=== PATIENT | female | born 1985 | race Caucasian/White ===

== ENCOUNTER 2024-07-23 01:47 | Day surgery (SDC) | payer BC, SELFPAY ==
[2024-07-12 08:38] VITALS: BMI 27.1
[2024-07-23 12:12] VITALS: BP 130/93; PULSE 58; RESP 18; TEMP 36.1; O2SAT 99; BMI 26.4
[2024-07-23] MEDS: LACTATED RINGERS 1,000 ML 150 ML IV CONT (12:16)
--- NOTE | 2024-07-23 12:22 | WPDANESEPPF ---
Anes - Initial Pre Proc Eval Procedure: Operation Date: 07/23/24 13:00 Proposed Procedures p Colonoscopy - Davy Eden MD Date/Time: 07/23/24 12:22 Surgeon: Davy Eden MD Pre Op Diagnosis: Mixed IBS Patient Data Age: 39 Gender: F Height: 1.75 m Weight: 81.3 kg Last Vital Signs Temp 36.1 C L 07/23/24 12:12 Pulse 58 L 07/23/24 12:12 Resp 18 07/23/24 12:12 BP 130/93 H 07/23/24 12:12 Pulse Ox 99 07/23/24 12:12 O2 Del Method Room Air 07/23/24 12:12 Allergies Allergy/AdvReac Type Severity Reaction Status Date / Time No Known Allergies Allergy Verified 07/23/24 12:10 Home Medications Medication Instructions Recorded Confirmed Type sertraline 100 mg tablet 100 mg PO HS 07/12/24 07/23/24 History Patient hx anesthesia problems: none Family hx anesthesia problems: none Results Review: All pre-operative results and documents have been reviewed as part of the pre-operative evaluation. [facility] Past Medical History Medical History (Updated 07/23/24 @ 12:23 by Onur Singleton MD) Anxiety Overweight Social History Social History (Updated 07/17/24 @ 09:20 by Olya Frank) Social History: Caffeine-daily Smoking status: Never smoker Alcohol intake: current Alcohol use details: Social Substance use: current Substance use type: marijuana Other substance usage details: Gummies for sleep Last use: 07/06/24 Anes - Eval Final PreProcedure Day of Procedure 07/23/24 12:22 Patient weight: overweight Heart: regular rate and rhythm Lungs: clear to auscultation Airway: Mallampati scale class II Neurological: alert and oriented Last oral intake: >/= 8 hours ASA classification: II Emergent: no Anesthetic plan: proceed Anesthesia type and monitoring: general GIVS and standard monitoring Results Review: All pre-operative results and documents have been reviewed as part of the pre-operative evaluation. Informed Consent: The patient's anesthetic plan and its attendant risks and benefits were discussed with the patient/family/POA. Questions were solicited and answers provided to the satisfaction of the patient/family/POA.
--- NOTE | 2024-07-23 12:58 | PM.HPGS ---
History of Present Illness History of Present Illness Consent: Risks, benefits, and alternatives have been discussed and questions answered. Patient agrees to proceed with procedure. Chief complaint: Mixed IBS Narrative: Jen Anderson is a 39 year old female here for first colonoscopy, 6 months of change bowel habits, no weight loss Review of Systems Review of Systems: All systems reviewed & are unremarkable except as noted in HPI and below PMFSH Past Medical History Medical History (Updated 07/23/24 @ 12:58 by Davy Eden MD) Anxiety Bowel habit changes Overweight Social History Social History (Updated 07/17/24 @ 09:20 by Olya Frank) Social History: Caffeine-daily Smoking status: Never smoker Alcohol intake: current Alcohol use details: Social Substance use: current Substance use type: marijuana Other substance usage details: Gummies for sleep Last use: 07/06/24 Meds Home Medications and Allergies Home Medications Medication Instructions Recorded Confirmed Type sertraline 100 mg tablet 100 mg PO HS 07/12/24 07/23/24 History Allergies Allergy/AdvReac Type Severity Reaction Status Date / Time No Known Allergies Allergy Verified 07/23/24 12:10 Vital Signs Vital Signs - 24 hr 07/23/24 12:12 Temperature 96.9 F L Pulse Rate 58 L Respiratory Rate 18 Blood Pressure 130/93 H Pulse Oximetry 99 Oxygen Delivery Room Air Exam Const: General: comfortable and no acute distress HENMT: Face/Nose/Sinus: Normal nares present Eyes: General: appearance normal, both eyes and all related structures Neck: Neck: no JVD Resp: Auscultation: clear to auscultation bilaterally Cardio: Rate: regular rate Rhythm: regular rhythm GI: Inspection: non-distended GI Palp: Yes Soft to palpation Skin: General skin exam: normal color Neuro: General: gait normal Speech: normal speech Extrem: General: normal to inspection Psych: Mental Status: mental status grossly normal Assessment and Plan Assessment and plan (1) Bowel habit changes: Code(s): R19.4 - Change in bowel habit Status: Acute Assessment and Plan: colonoscopy
[2024-07-23 13:15] LABS: BEDSIDEPREGUCG Negative (Negative)
[2024-07-23 13:17] VITALS: BP 114/69; PULSE 69; RESP 23; O2SAT 99
[2024-07-23 13:27] VITALS: BP 109/72; PULSE 63; RESP 17; O2SAT 100
[2024-07-23 13:37] VITALS: BP 127/81; PULSE 55; RESP 19; O2SAT 100
== END 2024-07-23 13:42 | disposition home or self-care (01) ==
PROVIDERS: PCP Emergency Medicine; Referring Provider Emergency Medicine; Visit Provider Internal Medicine Gastroenterology
PROC: 0DJD8ZZ Inspection of Lower Intestinal Tract, Via Natural or Artificial Opening Endoscopic (ICD-10-PCS; CPT 45378; principal; 2024-07-23 13:00)
DX: K64.8 Other hemorrhoids (principal); F41.9 Anxiety disorder, unspecified; F12.90 Cannabis use, unspecified, uncomplicated
CPT/HCPCS: 45378; J2704; J7120

== ENCOUNTER 2024-09-18 08:29 | Outpatient (CLI) | payer BC, MEDICAID, SELFPAY ==
--- NOTE | 2024-09-18 11:30 | NEURO_ITS ---
Impression: # Complains of right elbow pain with numbness in right hand. ? # Normal Nerve Conduction Study; No Carpal Tunnel Syndrome or ulnar neuropathy. ? # Normal needle/EMG exam distally and proximally. ? # Clinical correlation recommended. Nerve Conduction Studies Anti Sensory Summary Table ?Stim Site NR Peak (ms) P-T Amp (?V) Site1 Site2 Delta-P (ms) Dist (cm) Eliazar (m/s) Right Median Anti Sensory (2-3nd Digit) Wrist ? 3.0 67.5 Wrist 2-3nd Digit 3.0 14.0 47 Wrist ? 3.0 40.9 Wrist 2-3nd Digit 3.0 14.0 47 Right Radial Anti Sensory (Base 1st Digit) Wrist ? 2.1 17.0 Wrist Base 1st Digit 2.1 0.0 Right Ulnar Anti Sensory (5th Digit) Wrist ? 2.3 54.4 Wrist 5th Digit 2.3 14.0 61 Motor Summary Table ?Stim Site NR Onset (ms) O-P Amp (mV) Site1 Site2 Delta-0 (ms) Dist (cm) Eliazar (m/s) Right Median Motor (Abd Poll Brev) Wrist ? 3.0 4.3 Elbow Wrist 5.4 31.0 57 Elbow ? 8.4 7.9 Right Ulnar Motor (Abd Dig Minimi) Wrist ? 2.7 7.0 A Elbow Wrist 5.3 32.0 60 A Elbow ? 8.0 6.3 F Wave Studies ?NR F-Lat (ms) L-R F-Lat (ms) Right Median (Mrkrs) (Abd Poll Brev) ? 28.95 Right Ulnar (Mrkrs) (Abd Dig Min) ? 28.75 EMG ?Side Muscle Nerve Root Ins Act Fibs Amp Dur Recrt Comment Right 1stDorInt Ulnar C8-T1 Nml Nml Nml Nml Nml Right Ext Indicis Radial (Post Int) C7-8 Nml Nml Nml Nml Nml Right Ext Digitorum Radial (Post Int) C7-8 Nml Nml Nml Nml Nml Right BrachioRad Radial C5-6 Nml Nml Nml Nml Nml Right PronatorTeres Median C6-7 Nml Nml Nml Nml Nml Right Abd Poll Brev Median C8-T1 Nml Nml Nml Nml Nml Right ABD Dig Min Ulnar C8-T1 Nml Nml Nml Nml Nml Right Biceps Musculocut C5-6 Nml Nml Nml Nml Nml Right Triceps Radial C6-7-8 Nml Nml Nml Nml Nml Right Deltoid Axillary C5-6 Nml Nml Nml Nml Nml MTDD
== END 2024-09-18 08:30 | disposition home or self-care (01) ==
PROVIDERS: PCP Emergency Medicine; Visit Provider Physician Assistant Surgical
DX: G56.21 Lesion of ulnar nerve, right upper limb (principal)
CPT/HCPCS: 95886; 95909